=== PATIENT | female | born 1935 | race Caucasian/White ===

== ENCOUNTER 2018-07-04 09:31 | Inpatient (IN) | payer OTHER ==
[~2018-07-04] VITALS: Ht 157.5 cm; Wt 76.7 kg
--- NOTE | ~2018-07-04 | 2DMMODE ---
[facility] [address] [facility] [place] [address] 2 D/M-MODE ECHOCARDIOGRAM Name: TIRSO HENSON Room #: 219-P [facility]#: [id number] Admission: 07/04/18 Attend Phys: Sukhwinder Groves MD Discharge: Date of : 37 Date of Service: 07/05/18 0925 Report #: [id number] THIS REPORT FOR: //name// APPROVED REPORT Study performed: 07/05/2018 08:32:55 EXAM: Comprehensive 2D, Doppler, and color-flow Echocardiogram Patient Location: In-Patient Room #: ECHO 2 Status: routine BSA: 1.78 HR: 71 bpm BP: 126/82 mmHg Rhythm: Atrial Fibrillation Other Information Study Quality: Good Risk Factors: Cardiac Risk Factors: HTN Indications Atrial Fibrillation Chest Pain Hypertension/HDD 2D Dimensions RVDd: 36.97 mm IVSd: 11.62 (7-11mm) LVOT Diam: 17.61 (18-24mm) LVDd: 43.01 mm PWd: 9.98 (7-11mm) Ascending Ao: 31.93 (22-36mm) LVDs: 24.93 (25-40mm) Aortic Root: 29.98 mm IVC: 19.00 mm Volumes Left Atrial Volume (Systole) Single Plane 4CH: 78.58 mL Single Plane 2CH: 82.52 mL LA ESV Index: 49.00 mL/m2 Aortic Valve AoV Peak Naren.: 1.06 m/s AO Peak Gr.: 4.50 mmHg LVOT Max P.93 mmHg LVOT Max V: 0.99 m/s SHILOH Vmax: 2.28 cm2 [facility] [address] [place] [address] 2 D/M-MODE ECHOCARDIOGRAM Name: TIRSO HENSON Room #: 219-P [facility].#: [id number] Admission: 07/04/18 Attend Phys: Sukhwinder Groves MD Discharge: Date of : 37 Date of Service: 07/05/18 0925 Report #: [id number] Pulmonary Valve PV Peak Naren.: 0.92 m/s PV Peak Gr.: 3.37 mmHg Tricuspid Valve TR Peak Naren.: 2.56 m/s TR Peak Gr.: 26.41 mmHg PA Pressure: 31.41 mmHg Left Ventricle The left ventricle is normal size. There is normal LV segmental wall motion. There is normal left ventricular wall thickness. The left ventricular systolic function is normal. LVEF is 55-60%. This study is not technically sufficient to allow evaluation of the LV diastolic function due to atrial fibrillation. Right Ventricle The right ventricle is normal size. The right ventricular systolic function is normal. Atria Left atrium is dilated. Right atrium is dilated. Aortic Valve The aortic valve is mildly sclerotic Mild aortic regurgitation. There is no aortic valvular stenosis. Mitral Valve The mitral valve is normal in structure. Mild mitral regurgitation. No evidence of mitral valve stenosis. Tricuspid Valve The tricuspid valve is normal in structure. There is mild tricuspid regurgitation. Estimated PAP 30 mmHg. Pulmonic Valve The pulmonary valve is normal in structure. Trace pulmonic regurgitation. Great Vessels The aortic root is normal in size. The ascending aorta is normal in size. IVC is normal in size and collapses >50% with inspiration. Pericardium There is no pericardial effusion. [facility] [place] [address] 2 D/M-MODE ECHOCARDIOGRAM Name: TIRSO HENSON SARAH Room #: 219-P ADM IN M.R.#: [id number] Admission: 07/04/18 Attend Phys: Sukhwinder Groves MD Discharge: Date of : 37 Date of Service: 07/05/1825 Report #: [id number] <Conclusion> The left ventricular systolic function is normal. There is normal LV segmental wall motion. LVEF is 55-60%. Both atria are dilated. The aortic valve is mildly sclerotic. Mild aortic regurgitation, no stenosis. The mitral valve is normal in structure. Mild mitral regurgitation. There is mild tricuspid regurgitation. Estimated pulmonary artery pressure of 30 mmHg. There is no pericardial effusion. <ELECTRONICALLY SIGNED> By: Lenny Fish MD, [facility] 07/05/18924 4 4 Lenny Fish MD, [facility] /INF
--- NOTE | ~2018-07-04 | EKG ---
[address] [address] ELECTROCARDIOGRAM REPORT Name: TIRSO HENSON Room #: 219-P ADM IN M.R.#: [id number] Admission: 07/04/18 Attend Phys: Sukhwinder Groves MD Discharge: Date of : 37 Report #: [id number] THIS REPORT FOR: //name// [facility] Test Date: 2018-07-05 Test Time: 07:16:35 Pat Name: TIRSO HENSON Department: Room: 219 P Gender: F Core Carrier: MARTY : 1935 Requested By: Lenny Fish Order Number: [id number] MD: Lenny Fish Measurements Intervals [place] Rate: 88 P: ND: QRS: 60 QRSD: 94 T: -24 QT: 380 QTc: 460 Interpretive Statements Atrial fibrillation Repolarization abnormality Compared to ECG 07/04/2018 09:47:02 No significant changes Electronically Signed On 07-05-2018 8:04:30 [employer] by Lenny Fish [email or web address] <ELECTRONICALLY SIGNED> By: Lenny Fish MD, [facility] 07/05/18 0804 0716 5 Lenny Fish MD, FACC /EPI
--- NOTE | ~2018-07-04 | EKG ---
[address] [address] ELECTROCARDIOGRAM REPORT Name: HENSON,TIRSO SARAH Room #: 170-2 ADM IN M.R.#: [id number] Admission: 07/04/18 Attend Phys: Sukhwinder Groves MD Discharge: Date of : 37 Report #: [id number] THIS REPORT FOR: //name// [facility] ED Test Date: 2018-07-04 Test Time: 09:47:02 Pat Name: TIRSO HENSON Department: Room: 170 Gender: F Looping Inspector: : 1935 Requested By: Sonny Callaway Order Number: [id number] MD: Manuel Randhawa Measurements Intervals [place] Rate: 98 P: RI: QRS: 71 QRSD: 99 T: -43 QT: 384 QTc: 491 Interpretive Statements Atrial fibrillation Borderline repolarization abnormality No previous ECG available for comparison Electronically Signed On 07-04-2018 13:02:25 [employer] by Manuel Randhawa [email or web address] <ELECTRONICALLY SIGNED> By: Manuel Randhawa MD 07/04/18 1302 0947 0947 MD WALDO Paniagua
[2018-07-04 10:01] LABS: ABSOLUTE NEUTROPHILS 5.5 thou/uL (1.4-8.2); BASOPHILS 0.9 % (0.0-2.0); EOSINOPHILS 0.6 % (0.0-3.0); HEMATOCRIT 42.4 % (37.0-47.0); HEMOGLOBIN 14.7 gm/dL (12.0-15.0); LYMPHOCYTES 13.5 % (24.0-44.0); MCH 33.7 pg (26.0-34.0); MCHC 34.6 g/dL (28.0-37.0); MCV 97.4 fL (80.0-100.0); MONOCYTES 5.8 % (1.0-8.0); PLATELET COUNT 382 thou/uL (150-400); POLYS 79.2 % (36.0-66.0); RBC 4.36 mil/uL (4.20-5.00); RDW 13.9 % (10.5-14.5)
[2018-07-04 10:12] LABS: ANION GAP 13 mmol/L (7-16); BUN 17 mg/dL (7-18); CALCIUM 9.9 mg/dL (8.5-10.1); CHLORIDE 101 mmol/L (98-107); CO2 23 mmol/L (21-32); CREATININE 0.9 mg/dL (0.6-1.0); GLUCOSE 132 mg/dL (74-106); POTASSIUM 3.9 mmol/L (3.5-5.1); SODIUM 137 mmol/L (136-145)
[2018-07-04] MEDS ORDERED: GABAPENTIN 100100 MG PO (10:14)
[2018-07-04] MEDS ORDERED: HYDRALAZINE 2525 MG PO ×2 (10:14→14:29)
[2018-07-04] MEDS ORDERED: COUMADIN7.5 MG PO (10:15)
[2018-07-04] MEDS ORDERED: LOSARTAN POTAS100 MG PO (10:15)
[2018-07-04] MEDS ORDERED: CARVEDILOL3.125 MG PO (10:16)
[2018-07-04] MEDS ORDERED: NORCO 5-325 TA1 EACH PO (10:16)
[2018-07-04 10:17] LABS: MAGNESIUM 2.2 mg/dL (1.8-2.4); SGOT 24 U/L (15-37); SGPT 37 U/L (30-65); TOTAL BILIRUBIN 0.5 mg/dL (<0.1-1.0); TOTAL PROTEIN 8.5 g/dL (6.4-8.2); TROPONIN-I <0.06 ng/mL (<0.06)
[2018-07-04 11:55] LABS: CHOLESTEROL 217 mg/dL (<200); HDL CHOLESTEROL 63 mg/dL (>40); LDL CHOLESTEROL 136 mg/dL (<100); TC:HDL 3.4 Ratio (Not establshd); TRIGLYCERIDE 94 mg/dL (<150); VLDL 19 mg/dL (<40)
[2018-07-04 12:38] VITALS: BP 187/108
[2018-07-04 13:12] VITALS: BP 193/109
[2018-07-04] MEDS ORDERED: LIPITOR 20 MG T20 M1 PO (14:29)
[2018-07-04] MEDS ORDERED: PRINIVIL20 MG PO (14:30)
[2018-07-04] MEDS ORDERED: XARELTO20 MG PO (14:31)
[2018-07-04] MEDS ORDERED: TOPROL XL100 MG PO (14:31)
[2018-07-04] MEDS ORDERED: OCUVITE EYE +1 EACH PO (14:33)
[2018-07-04 17:22] VITALS: BP 145/90
[2018-07-04 19:42] VITALS: BP 138/76
[2018-07-05 00:44] VITALS: BP 112/69
[2018-07-05 04:06] LABS: CALCIUM 9.9 mg/dL (8.5-10.1); POTASSIUM 4.4 mmol/L (3.5-5.1)
[2018-07-05 04:07] LABS: HEMATOCRIT 41.1 % (37.0-47.0); HEMOGLOBIN 13.3 gm/dL (12.0-15.0); MCH 31.9 pg (26.0-34.0); MCHC 32.3 g/dL (28.0-37.0); MCV 98.7 fL (80.0-100.0); RBC 4.17 mil/uL (4.20-5.00); RDW 14.1 % (10.5-14.5); WBC 7.2 thou/uL (4.0-11.0)
[2018-07-05 06:09] VITALS: BP 126/82
[2018-07-05 07:11] VITALS: BP 159/89
[2018-07-05] MEDS ORDERED: CHLORTHALIDONE25 MG PO (13:19)
[2018-07-05] MEDS ORDERED: DILTIAZEM 24HR180 M1 PO (13:19)
[2018-07-05] MEDS ORDERED: SYNTHROID25 MC1 PO ×2 (14:21→14:42)
[2018-07-05 14:53] VITALS: BP 131/81
[2018-07-05 15:27] VITALS: BP 131/81
== END 2018-07-05 16:23 | disposition home or self-care (01) | DRG 304 ==
LOC: ER 09:31 → 2N 10:46 → EROBS 10:46 → 2N 13:22 → ENTRNSPT 07-05 16:05 → 2N 07-05 16:23
PROVIDERS: Emergency Medicine; Hospitalist; Nurse Practitioner Adult Health
DX: I16.0 Hypertensive urgency (principal); E43 Unspecified severe protein-calorie malnutrition; R07.89 Other chest pain; I10 Essential (primary) hypertension; I48.2 Chronic atrial fibrillation; E78.5 Hyperlipidemia, unspecified; M19.90 Unspecified osteoarthritis, unspecified site; F41.9 Anxiety disorder, unspecified; E03.9 Hypothyroidism, unspecified; Z87.891 Personal history of nicotine dependence; Z88.1 Allergy status to other antibiotic agents; Z79.82 Long term (current) use of aspirin; Z79.899 Other long term (current) drug therapy
CPT/HCPCS: 10081

== ENCOUNTER → 2020-04-23 | Outpatient (CLI) | payer OTHER ==
[~2020-04-23] MED LIST: CARVEDILOL3.125 MG PO; CHLORTHALIDONE25 MG PO; COUMADIN7.5 MG PO; DILTIAZEM 24HR180 M1 PO; GABAPENTIN 100100 MG PO; HYDRALAZINE 2525 MG PO; LIPITOR 20 MG T20 M1 PO; LOSARTAN POTAS100 MG PO; NORCO 5-325 TA1 EACH PO; OCUVITE EYE +1 EACH PO; PRINIVIL20 MG PO; SYNTHROID25 MC1 PO; TOPROL XL100 MG PO; XARELTO20 MG PO
== END ==
LOC: SJCVCIMAG 10:40
PROVIDERS: ATTEND Internal Medicine
DX: I08.3 Combined rheumatic disorders of mitral, aortic and tricuspid valves (principal); I11.9 Hypertensive heart disease without heart failure; I48.91 Unspecified atrial fibrillation; E78.5 Hyperlipidemia, unspecified; Z79.899 Other long term (current) drug therapy; Z87.891 Personal history of nicotine dependence

== ENCOUNTER → 2020-05-05 | Outpatient (CLI) | payer OTHER ==
[2020-05-05 14:40] LABS: BASOPHILS 1.1 % (0.0-2.0); EOSINOPHILS 1.5 % (0.0-3.0); HEMATOCRIT 35.8 % (37.0-47.0); HEMOGLOBIN 12.1 gm/dL (12.0-15.0); LYMPHOCYTES 16.8 % (24.0-44.0); MCH 31.9 pg (26.0-34.0); MCHC 33.7 g/dL (28.0-37.0); MCV 94.9 fL (80.0-100.0); MONOCYTES 9.3 % (1.0-8.0); PLATELET COUNT 392 thou/uL (150-400); POLYS 71.3 % (36.0-66.0); RBC 3.78 mil/uL (4.20-5.00); RDW 14.7 % (10.5-14.5); WBC 5.6 thou/uL (4.0-11.0)
[2020-05-05 14:55] LABS: CREATININE 0.9 mg/dL (0.6-1.0); DIRECT BILIRUBIN < 0.1 mg/dL (<0.1-0.2); SGOT 23 U/L (15-37); SGPT 35 U/L (30-65); TOTAL BILIRUBIN 0.3 mg/dL (0.2-1.0); TOTAL PROTEIN 7.7 g/dL (6.4-8.2)
== END ==
LOC: RAD 05-04 13:51
PROVIDERS: ATTEND Internal Medicine
DX: I27.21 Secondary pulmonary arterial hypertension (principal); I51.7 Cardiomegaly; J98.11 Atelectasis

== ENCOUNTER → 2020-05-19 | Outpatient (CLI) | payer OTHER | LOC: RAD 12:41 | PROVIDERS: ATTEND Internal Medicine | DX: I51.7 Cardiomegaly (principal); J98.4 Other disorders of lung ==

== ENCOUNTER → 2020-05-26 | Outpatient (CLI) | payer OTHER ==
[2020-05-26 12:57] LABS: CREATININE 0.8 mg/dL (0.6-1.0)
== END ==
LOC: LAB 12:17 → BC 16:19
PROVIDERS: ATTEND Internal Medicine
DX: J84.10 Pulmonary fibrosis, unspecified (principal); J98.11 Atelectasis; I70.0 Atherosclerosis of aorta; R91.1 Solitary pulmonary nodule; E27.8 Other specified disorders of adrenal gland; I77.810 Thoracic aortic ectasia

== ENCOUNTER → 2020-05-29 | Outpatient (CLI) | payer OTHER | LOC: CAT 07:21 | PROVIDERS: ATTEND Internal Medicine | DX: E27.8 Other specified disorders of adrenal gland (principal); K76.89 Other specified diseases of liver; I70.0 Atherosclerosis of aorta; R19.5 Other fecal abnormalities; M43.16 Spondylolisthesis, lumbar region ==

== ENCOUNTER → 2020-08-25 | Outpatient (CLI) | payer OTHER ==
--- NOTE | 2020-08-25 12:38 | 2DMMODE ---
[facility] [place] [address] 2 D/M-MODE ECHOCARDIOGRAM Name: TIRSO HENSON Room #: REG [facility]#: [id number] Admission: 08/25/20 Attend Phys: Michael Delgado MD Discharge: Date of : 37 Report #: [id number] THIS REPORT FOR: cc: Rasheed Tobar MD, Jonathan MD Lammoglia, Francisco J. MD ~ APPROVED REPORT Study performed: 08/25/2020 11:18:04 EXAM: Comprehensive 2D, Doppler, and color-flow Echocardiogram Patient Location: Out-Patient Room #: 2 Status: routine BSA: 1.74 HR: 84 bpm BP: 124/82 mmHg Rhythm: Atrial Fibrillation Other Information Study Quality: Good Indications Atrial Fibrillation History of pulmonary hypertension 2D Dimensions RVDd: 40.12 mm IVSd: 12.51 (7-11mm) LVOT Diam: 19.96 (18-24mm) LVDd: 42.34 mm PWd: 10.14 (7-11mm) LVDs: 25.09 (25-40mm) Aortic Root: 27.49 mm IVC: 16.00 mm Volumes Left Atrial Volume (Systole) Single Plane 4CH: 91.86 mL Single Plane 2CH: 74.91 mL LA ESV Index: 51.00 mL/m2 Aortic Valve AoV Peak Naren.: 1.61 m/s AO Peak Gr.: 10.32 mmHg LVOT Max P.69 mmHg LVOT Max V: 1.08 m/s SHILOH Vmax: 2.11 cm2 [facility] [address] [place] [address] 2 D/M-MODE ECHOCARDIOGRAM Name: TIRSO HENSON Room #: REG CL Gill#: [id number] Admission: 08/25/20 Attend Phys: Michael Delgado, Discharge: Date of : 37 Report #: [id number] Mitral Valve IVRT: 64.59 ms Pulmonary Valve PV Peak Naren.: 0.94 m/s PV Peak Gr.: 3.55 mmHg Tricuspid Valve TR Peak Naren.: 2.68 m/s TR Peak Gr.: 28.69 mmHg PA Pressure: 34.00 mmHg Left Ventricle The left ventricle is normal size. There is normal LV segmental wall motion. Mild concentric left ventricular hypertrophy. The left ventricular systolic function is normal. The left ventricular ejection fraction is within the normal range. LVEF is 55-60%. This study is not technically sufficient to allow evaluation of the LV diastolic function due to atrial fibrillation. Right Ventricle The right ventricle is normal size. The right ventricular systolic function is normal. Atria Left atrium is dilated. Right atrium is dilated. Aortic Valve The aortic valve is normal in structure. The Aortic valve is sclerotic. Trace aortic regurgitation. There is no aortic valvular stenosis. Mitral Valve The mitral valve is normal in structure. Mild mitral regurgitation. No evidence of mitral valve stenosis. Tricuspid Valve The tricuspid valve is normal in structure. There is mild tricuspid regurgitation. Estimated PAP34 mmHg. There is mild pulmonary hypertension. Pulmonic Valve The pulmonary valve is normal in structure. There is no pulmonic valvular regurgitation. Great Vessels [facility] [address] [place] [address] 2 D/M-MODE ECHOCARDIOGRAM Name: TIRSO HENSON Room #: REG [facility]#: [id number] Admission: 08/25/20 Attend Phys: Michael Delgado, Discharge: Date of : 37 Report #: [id number] The aortic root is normal in size. IVC is normal in size and collapses >50% with inspiration. Pericardium There is no pericardial effusion. <Conclusion> The left ventricle is normal size. Mild concentric left ventricular hypertrophy. LVEF is 55-60%. Left atrium is dilated. Right atrium is dilated. The aortic valve is normal in structure. The Aortic valve is sclerotic. Trace aortic regurgitation. The mitral valve is normal in structure. Mild mitral regurgitation. The tricuspid valve is normal in structure. There is mild tricuspid regurgitation. Estimated PAP34 mmHg. There is mild pulmonary hypertension. The pulmonary valve is normal in structure. There is no pericardial effusion. <ELECTRONICALLY SIGNED> By: Guerrero Bernard MD 08/25/20 1238 D: 018 1238 Guerrero Bernard MD /INF
== END ==
LOC: CV 10:51
PROVIDERS: ATTEND Internal Medicine
DX: I08.3 Combined rheumatic disorders of mitral, aortic and tricuspid valves (principal); I27.20 Pulmonary hypertension, unspecified; D35.01 Benign neoplasm of right adrenal gland; K76.9 Liver disease, unspecified; E27.8 Other specified disorders of adrenal gland

== ENCOUNTER → 2020-09-02 | Outpatient (CLI) | payer OTHER ==
[2020-09-02 11:09] LABS: CREATININE 0.8 mg/dL (0.6-1.0)
== END ==
LOC: CAT 10:00
PROVIDERS: ATTEND Internal Medicine
DX: N28.1 Cyst of kidney, acquired (principal); I51.7 Cardiomegaly; I27.20 Pulmonary hypertension, unspecified; D35.01 Benign neoplasm of right adrenal gland; K76.9 Liver disease, unspecified; E27.8 Other specified disorders of adrenal gland; I70.0 Atherosclerosis of aorta; K57.30 Diverticulosis of large intestine without perforation or abscess without bleeding; D25.9 Leiomyoma of uterus, unspecified

== ENCOUNTER → 2021-08-17 | Outpatient (CLI) | payer OTHER | LOC: SJCVC 13:09 | PROVIDERS: ATTEND Internal Medicine | DX: R94.31 Abnormal electrocardiogram [ECG] [EKG] (principal); I48.21 Permanent atrial fibrillation; I10 Essential (primary) hypertension; E78.5 Hyperlipidemia, unspecified; I27.21 Secondary pulmonary arterial hypertension; F41.9 Anxiety disorder, unspecified; E03.9 Hypothyroidism, unspecified; Z79.01 Long term (current) use of anticoagulants; Z87.891 Personal history of nicotine dependence; Z72.89 Other problems related to lifestyle; Z88.1 Allergy status to other antibiotic agents; Z88.8 Allergy status to other drugs, medicaments and biological substances; Z79.899 Other long term (current) drug therapy ==